=== PATIENT | female | born 1985 | race Caucasian/White ===

== ENCOUNTER 2016-09-17 23:22 | Emergency (ER) | payer BC, OTHER ==
[2016-09-17 23:29] VITALS: TEMP 97.7
[2016-09-17] MEDS ORDERED: HYDROmorphONE/DILAUDID 1 MG/ML SYR IVP ONE (23:33)
[2016-09-17] MEDS ORDERED: ONDANSETRON 4 MG/2 ML VIAL IVP ONE (23:33)
[2016-09-17] MEDS ORDERED: NS 1,000 ML IV ONE (23:33)
--- NOTE | 2016-09-17 23:33 | EDPHY ---
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 HISTORY OF PRESENT ILLNESS: This patient very pleasant 30-year-old female, denies any significant medical history only abdominal surgeries cholecystectomy , she presents emergency room with sudden onset 30 minutes prior to arrival of sharp stabbing right adnexal right lower quadrant pain. No back pain. No fever. No vaginal discharge. No vaginal bleeding. Denies being . States that she around 10 o'clock had sudden onset sharp 10/10 right adnexal right lower quadrant pain. Causing her to bend over. No vomiting. Did have nausea. Denies back pain or urinary symptoms. No history of ovarian torsion or ovarian cyst. Denies being . Still has her appendix. The pain has gradually improved over time. She still has some pelvic pain crampy in nature. Current pain is 6/10. Past Medical History: No significant medical history Past Surgical History: Cholecystectomy Social History: Denies daily use of drugs alcohol tobacco products Family History: Noncontributory ROS REVIEW OF SYSTEMS: A comprehensive 10 point review of systems is otherwise negative aside from elements mentioned in the history of present illness. Exam Constitutional triage nursing summary reviewed, vital signs reviewed, awake/ alert. Eyes normal conjunctivae and sclera, EOMI, PERRLA. HENT normal inspection, atraumatic, moist mucus membranes, no epistaxis, neck supple/ no meningismus, no raccoon eyes. Respiratory clear to auscultation bilaterally, normal breath sounds, no respiratory distress, no wheezing. Cardiovascular rate normal, regular rhythm, no murmur, no edema, distal pulses normal. Gastrointestinal tender palpation right adnexal, right lower quadrant, , no rebound, no guarding, normal bowel sounds, no distension, no pulsatile mass. Genitourinary no CVA tenderness. Musculoskeletal no midline vertebral tenderness, full range of motion, no calf swelling, no tenderness of extremities, no meningismus, good pulses, neurovascularly intact. Skin pink, warm, & dry, no rash, skin atraumatic. Neurologic awake, alert and oriented x 3, AAOx3, moves all 4 extremities equally, motor intact, sensory intact, CN II-XII intact, normal cerebellar, normal vision, normal speech. Psychiatric normal mood/affect. Heme/Lymph/Immune no lymphadenopathy. Differential diagnosis includes but is not limited to and in no particular order : Ruptured ovarian cyst, ovarian torsion, ectopic , appendicitis Bowel obstruction, gallbladder disease, diverticulitis, colitis, enteritis, perforated viscus, gastritis, GERD, esophagitis, urinary tract infection, pyelonephritis, kidney stones Medical Decision Making: Plan for this patient IV establishment, blood draw, IV fluids for hydration, 1 L normal saline, IV Zofran for nausea, IV Dilaudid for pain control. Pelvic ultrasound. Re-evaluation: 0106AM: Ultrasound called to me by Dr. Pena. This is a pelvic ultrasound shows no significant ovarian cyst, no hemorrhagic cyst, no torsion. Good flow to both ovaries. There is pelvic congestion syndrome seen. I did review this patient's blood work at this time no leukocytosis. Electrolytes are appropriate. Kidney function appropriate. Urinalysis clean. No blood. 0113: ; I did re-evaluate this patient this time her abdomen is soft nontender. She tells me her symptoms have greatly improved. She denies abdominal pain at this time. Denies fever. She does not feel nauseous denies chest pain shortness of breath. She would like to go home. I did explain that she has normal vital signs, normal blood work, normal ultrasound I do not have a great explanation for sudden onset sharp stabbing right lower quadrant right adnexal pain. Given that she feels well her ultrasounds reassuring blood work is reassuring I did explain that will allow her to go home however if she develops worsening abdominal pain fever vomiting or does not feel well she needs to immediately return back to the emergency room. We did not rule out acute appendicitis. She understands she develops worsening abdominal pain return emergency room. Source: Patient - Personal History LMP (Females 10-55): Unknown Current Tetanus/Diphtheria Vaccine: Unsure - Medical/Surgical History Hx Asthma: No Hx Chronic Respiratory Disease: No Hx Diabetes: No Hx Cardiac Disease: No Hx Renal Disease: No Hx Cirrhosis: No Hx Alcoholism: No Hx HIV/AIDS: No Hx Splenectomy or Spleen Trauma: No Other PMH: choly, pre-eclampsia - Social History Smoking Status: Never smoked Constitutional: Initial Vital Signs Temperature (C) 36.5 C 09/17/16 23:26 Heart Rate 75 09/17/16 23:26 Respiratory Rate 15 09/17/16 23:26 Blood Pressure 133/83 H 09/17/16 23:26 O2 Sat (%) 99 09/17/16 23:26 O2 Delivery Mode Room Air Allergies/Adverse Reactions: No Known Allergies Allergy (Unverified 09/17/16 23:25) Home Medications: Medication Instructions Recorded NK [No Known Home Meds] 09/17/16 Medical Decision Making - Data Points Laboratory Results: Laboratory Results 09/17/16 23:50 09/17/16 23:50 09/17/16 09/17/16 09/17/16 23:50 23:50 23:50 WBC 6.42 10^3/uL 10^3/uL (3.80-9.50) RBC 4.46 10^6/uL 10^6/uL (4.18-5.33) Hgb 13.7 g/dL g/dL (12.6-16.3) Hct 38.9 % % (38.0-47.0) MCV 87.2 fL fL (81.5-99.8) MCH 30.7 pg pg (27.9-34.1) MCHC 35.2 g/dL g/dL (32.4-36.7) RDW 12.7 % % (11.5-15.2) Plt Count 292 10^3/uL 10^3/uL (150-400) MPV 10.2 fL fL (8.7-11.7) Neut % (Auto) 37.5 % L % (39.3-74.2) Lymph % (Auto) 49.7 % H % (15.0-45.0) [place] % (Auto) 11.4 % % (4.5-13.0) Eos % (Auto) 0.6 % % (0.6-7.6) Baso % (Auto) 0.5 % % (0.3-1.7) Nucleat RBC Rel Count 0.0 % % (0.0-0.2) Absolute Neuts (auto) 2.41 10^3/uL 10^3/uL (1.70-6.50) Absolute Lymphs (auto) 3.19 10^3/uL H 10^3/uL (1.00-3.00) Absolute Monos (auto) 0.73 10^3/uL 10^3/uL (0.30-0.80) Absolute Eos (auto) 0.04 10^3/uL 10^3/uL (0.03-0.40) Absolute Basos (auto) 0.03 10^3/uL 10^3/uL (0.02-0.10) Absolute Nucleated RBC 0.00 10^3/uL 10^3/uL (0-0.01) Immature Gran % 0.3 % % (0.0-1.1) Immature Gran # 0.02 10^3/uL 10^3/uL (0.00-0.10) Sodium 141 mEq/L mEq/L (134-144) Potassium 4.5 mEq/L mEq/L (3.5-5.2) Chloride 103 mEq/L mEq/L (97-110) Carbon Dioxide 24 mEq/l mEq/l (22-31) Anion Gap 14 mEq/L mEq/L (8-16) BUN 19 mg/dL mg/dL (7-23) Creatinine 0.8 mg/dL mg/dL (0.6-1.0) Estimated GFR > 60 Glucose 90 mg/dL mg/dL (70-100) Calcium 10.1 mg/dL mg/dL (8.5-10.4) Total Bilirubin 0.7 mg/dL mg/dL (0.1-1.4) Conjugated Bilirubin 0.4 mg/dL mg/dL (0.0-0.5) Unconjugated Bilirubin 0.3 mg/dL mg/dL (0.0-1.1) AST 28 IU/L IU/L (14-46) ALT 35 IU/L IU/L (9-52) Alkaline Phosphatase 136 IU/L H IU/L (38-126) Total Protein 7.9 g/dL g/dL (6.3-8.2) Albumin 4.6 g/dL g/dL (3.5-5.0) Lipase 178.0 IU/L IU/L (23-300) Beta HCG, Qual NEGATIVE Urine Color Urine Appearance Urine pH Ur Specific [place] Urine Protein Urine Ketones Urine Blood Urine Nitrate Urine Bilirubin Urine Urobilinogen Ur Leukocyte Esterase Urine Glucose 09/17/16 23:35 WBC RBC Hgb Hct MCV MCH MCHC RDW Plt Count MPV Neut % (Auto) Lymph % (Auto) [place] % (Auto) Eos % (Auto) Baso % (Auto) Nucleat RBC Rel Count Absolute Neuts (auto) Absolute Lymphs (auto) Absolute Monos (auto) Absolute Eos (auto) Absolute Basos (auto) Absolute Nucleated RBC Immature Gran % Immature Gran # Sodium Potassium Chloride Carbon Dioxide Anion Gap BUN Creatinine Estimated GFR Glucose Calcium Total Bilirubin Conjugated Bilirubin Unconjugated Bilirubin AST ALT Alkaline Phosphatase Total Protein Albumin Lipase Beta HCG, Qual Urine Color YELLOW Urine Appearance CLEAR Urine pH 7.0 (5.0-7.5) Ur Specific [place] 1.016 (1.002-1.030) Urine Protein NEGATIVE (NEGATIVE) Urine Ketones NEGATIVE (NEGATIVE) Urine Blood NEGATIVE (NEGATIVE) Urine Nitrate NEGATIVE (NEGATIVE) Urine Bilirubin NEGATIVE (NEGATIVE) Urine Urobilinogen NEGATIVE EU EU (0.2-1.0) Ur Leukocyte Esterase NEGATIVE (NEGATIVE) Urine Glucose NEGATIVE (NEGATIVE) Medications Given: Discontinued Medications Hydromorphone HCl (Dilaudid) 0.5 mg IVP EDNOW ONE Stop: 09/17/16 23:34 Last Admin: 09/17/16 23:52 Dose: Not Given Sodium Chloride (Ns) 1,000 mls @ 0 mls/hr IV ONCE ONE; Wide Open PRN Reason: Protocol Stop: 09/17/16 23:34 Last Admin: 09/17/16 23:51 Dose: 1,000 mls Ondansetron HCl (Zofran) 4 mg IVP EDNOW ONE Stop: 09/17/16 23:34 Last Admin: 09/17/16 23:52 Dose: Not Given Departure - Departure Disposition: Home, Routine, Self-Care Clinical Impression: Abdominal pain Qualifiers: Abdominal location: lower abdomen, unspecified Qualified Code(s): R10.30 - Lower abdominal pain, unspecified Condition: Good Instructions: Acute Abdominal Pain (ED) Additional Instructions: 1. Return emergency room immediately if he develops worsening abdominal pain, fever, vomiting. 2. Your ultrasound and blood work were reassuring tonight. However she develops worsening abdominal pain return for possible CT scan. Referrals: Luz Marina Anton MD [Primary Care Provider] - As per Instructions
[2016-09-17 23:52] LABS: COLOR YELLOW; LEUKOCYTE ESTERASE,URINE NEGATIVE (NEGATIVE); NITRITE,URINE NEGATIVE (NEGATIVE)
[2016-09-18 00:03] LABS: % IMMATURE GRANULYOCYTES 0.3 % (0.0-1.1); ABSOLUTE IMMATURE GRANULOCYTES 0.02 10^3/uL (0.00-0.10); ADD DIFF? NO; ADD MORPH? NO; ADD SCAN? NO; ATYPICAL LYMPHOCYTE FLAG 70 (0-99); FRAGMENT RBC FLAG 0 (0-99); HEMATOCRIT 38.9 % (38.0-47.0); HEMOGLOBIN 13.7 g/dL (12.6-16.3); LEFT SHIFT FLG 0 (0-99); LIPEMIA HEMOLYSIS FLAG 90 (0-99); MEAN CELL HEMOGLOBIN 30.7 pg (27.9-34.1); MEAN CELL HEMOGLOBIN CONCENTR. 35.2 g/dL (32.4-36.7); MEAN CELL VOLUME 87.2 fL (81.5-99.8); MEAN PLATELET VOLUME 10.2 fL (8.7-11.7); PLATELET CLUMPS FLAG 0 (0-99); PLATELET COUNT 292 10^3/uL (150-400); RED BLOOD CELL COUNT 4.46 10^6/uL (4.18-5.33); RED CELL DISTRIBUTION WIDTH 12.7 % (11.5-15.2)
[2016-09-18 00:56] LABS: ALANINE AMINOTRANSFERASE 35 IU/L (9-52); ALBUMIN 4.6 g/dL (3.5-5.0); ALKALINE PHOSPHATASE 136 IU/L (38-126); ANION GAP 14 mEq/L (8-16); ASPARTATE AMINOTRANSFERASE 28 IU/L (14-46); BILIRUBIN,TOTAL 0.7 mg/dL (0.1-1.4); BILIRUBIN-CONJUGATED 0.4 mg/dL (0.0-0.5); BILIRUBIN-UNCONJUGATED 0.3 mg/dL (0.0-1.1); CALCIUM 10.1 mg/dL (8.5-10.4); CARBON DIOXIDE 24 mEq/l (22-31); CHLORIDE 103 mEq/L (97-110); CREATININE 0.8 mg/dL (0.6-1.0); GLOMERULAR FILTRATION RATE > 60; GLUCOSE 90 mg/dL (70-100); POTASSIUM 4.5 mEq/L (3.5-5.2); SODIUM 141 mEq/L (134-144); TOTAL PROTEIN 7.9 g/dL (6.3-8.2)
[2016-09-18 01:23] VITALS: BP 112/63; PULSE 72; RESP 16; O2SAT 96
== END 2016-09-18 01:23 | disposition home or self-care (01) ==
DX: R10.31 Right lower quadrant pain (principal); Z90.49 Acquired absence of other specified parts of digestive tract

== ENCOUNTER 2017-02-24 10:08 | Emergency (ER) | payer OTHER ==
[2017-02-24] MEDS ORDERED: IBUPROFEN 600 MG TAB PO ONE (10:28)
[2017-02-24] MEDS ORDERED: METOCLOPRAMIDE 10 MG/2 ML VIAL IVP ONE (10:49)
[2017-02-24] MEDS ORDERED: NS 1,000 ML IV ONE (10:49)
[2017-02-24] MEDS ORDERED: IOPAMIDOL (ISOVUE 370) 100 ML BTL IV ONE (11:03)
--- NOTE | 2017-02-24 11:13 | EDPHY ---
H & P Time Seen by Provider: 02/24/17 10:35 HPI/ROS: CHIEF COMPLAINT: Headache and neck pain HISTORY OF PRESENT ILLNESS: Patient had a fall yesterday at 3:00 p.m. [place] on her tailbone does not remember specifically hitting her head. About 2 hours later she developed a bifrontal headache which has persisted and is associated with posterior neck pain. It is much worse when she stands up and when she does have an upright position she gets nausea and has vomiting and feels dizzy and off balance. When she is lying down she feels much better. No spinal tap or epidural or other spinal procedures recently. No fever or chills or ENT symptoms. No trouble with speech or vision thought strength or sensation. REVIEW OF SYSTEMS: Eye: no change in vision or double vision ENT: no sore throat Cardiac: no chest pain or syncope Pulmonary: no cough or SOB Abdomen: No abdominal pain Musculoskeletal: Neck stiffness and tailbone soreness Skin: no rash Neuro: HPI Constitutional: no fever : no urinary symptoms A comprehensive 10 point review of systems is otherwise negative aside from elements mentioned in the history of present illness. PAST MEDICAL HISTORY: Cholecystectomy, preeclampsia Social history: has 11 month child at home, no alcohol General Appearance: Alert and conversant, cooperative. Eyes: No scleral icterus. Pupils equal round reactive and extraocular motion intact ENT, Mouth: Normal mucous membranes. No hemotympanum. Respiratory: Normal respiratory effort, breath sounds equal, lungs are clear to auscultation. Cardiovascular: Regular rate and rhythm. No carotid bruit. Gastrointestinal: Abdomen is soft and non tender. Neurological: Alert and oriented x3. Normally conversant. Face symmetric, normal movement and sensation in all extremities. Normal [id number] bilaterally and no pronator drift. Skin: Warm and dry, no rashes. Musculoskeletal: Some tenderness on coccyx, no cervical thoracic or lumbar spine tenderness. Psychiatric: Not agitated. Emergency Department course/MDM: Possibility of great vessel dissection is considered, angiography discussed and consented. 1140: Negative CT imaging including noncontrast head and angiography of the neck per Georgina at this time. Treated for headache with IV metoclopramide and Benadryl. IV normal saline. At this time results were discussed with the patient. She is sitting up and is no longer vomiting. Plan for symptomatic treatment and discharge. Warned it is possible that she has concussion, it is also possible that she developed primary headache only coincidentally related to being an onset 2 hours after fall. Smoking Status: Never smoked Constitutional: Initial Vital Signs Temperature (C) 37.4 C 02/24/17 10:17 Heart Rate 74 02/24/17 10:17 Respiratory Rate 16 02/24/17 10:17 Blood Pressure 123/55 H 02/24/17 10:17 O2 Sat (%) 98 02/24/17 10:17 O2 Delivery Mode Room Air Allergies/Adverse Reactions: sulfacetamide [From Sulfacet-R] Allergy (Verified 02/24/17 10:16) sulfur [From Sulfacet-R] Allergy (Verified 02/24/17 10:16) Home Medications: Medication Instructions Recorded NK [No Known Home Meds] 09/17/16 Medical Decision Making - Data Points Laboratory Results: 02/24/17 10:51 POC Hgb 15.6 gm/dL gm/dL (12.6-16.3) POC Hct 46 % % (38-47) POC Sodium 140 mEq/L mEq/L (134-144) POC Potassium 4.2 mEq/L mEq/L (3.3-5.0) POC Chloride 105 mEq/L mEq/L (97-110) POC BUN 15 mg/dL mg/dL (7-23) POC Creatinine 0.8 mg/dL mg/dL (0.6-1.0) POC Glucose 136 mg/dL H mg/dL (70-100) Medications Given: Discontinued Medications Diphenhydramine HCl (Benadryl Injection) 25 mg IVP EDNOW ONE Stop: 02/24/17 10:50 Last Admin: 02/24/17 11:03 Dose: 25 mg Sodium Chloride (Ns) 1,000 mls @ 0 mls/hr IV ONCE ONE; Wide Open PRN Reason: Protocol Stop: 02/24/17 10:50 Last Admin: 02/24/17 11:03 Dose: 1,000 mls Ibuprofen (Motrin) 600 mg PO EDNOW ONE Stop: 02/24/17 10:29 Last Admin: 02/24/17 10:30 Dose: 600 mg Metoclopramide HCl (Reglan Injection) 10 mg IVP EDNOW ONE Stop: 02/24/17 10:50 Last Admin: 02/24/17 11:03 Dose: 10 mg Point of Care Test Results: 02/24/17 10:51 POC Sodium 140 POC Potassium 4.2 POC Chloride 105 POC BUN 15 POC Creatinine 0.8 POC Glucose 136 H Departure - Departure Disposition: Home, Routine, Self-Care Clinical Impression: Headache Qualifiers: Headache type: unspecified Headache chronicity pattern: acute headache Intractability: not intractable Qualified Code(s): R51 - Headache Condition: Good Instructions: Acute Headache (ED) Additional Instructions: It is possible that you had a concussion. Your brain and neck imaging was normal today. You received IV metoclopramide and Benadry in the emergency department today. However, it is also possible that you developed a headache that was only coincidentally related to the fall. Referrals: Luz Marina Anton MD [[facility] Primary Care Provider] - As per Instructions
[2017-02-24 12:24] VITALS: BP 112/63; PULSE 69; RESP 18; TEMP 98.4; O2SAT 96
== END 2017-02-24 12:21 | disposition home or self-care (01) ==
PROC: 3E0337Z Introduction of Electrolytic and Water Balance Substance into Peripheral Vein, Percutaneous Approach (ICD-10-PCS; principal; 2017-02-24)
DX: S09.90XA Unspecified injury of head, initial encounter (principal); E86.9 Volume depletion, unspecified; V00.311A Fall from snowboard, initial encounter; Y92.89 Other specified places as the place of occurrence of the external cause; Y93.23 Activity, snow (alpine) (downhill) skiing, snowboarding, sledding, tobogganing and snow tubing
CPT/HCPCS: 82947-QW; 96374; J1200; J2765; Q9967

== ENCOUNTER 2017-02-25 08:47 | Observation (INO) | payer OTHER ==
[2017-02-25] MEDS ORDERED: DEXAMETHASONE 10 MG/ML VIAL IVP ONE (09:02)
[2017-02-25] MEDS ORDERED: METOCLOPRAMIDE 10 MG/2 ML VIAL IVP ONE (09:02)
[2017-02-25] MEDS ORDERED: NS 1,000 ML IV ONE (09:02)
[2017-02-25] MEDS ORDERED: ONDANSETRON 4 MG/2 ML VIAL IVP ONE (09:02)
[2017-02-25] MEDS ORDERED: KETOROLAC 30 MG/1 ML SDV IVP ONE (09:02)
--- NOTE | 2017-02-25 09:09 | EDPHY ---
H & P Time Seen by Provider: 02/25/17 08:56 HPI/ROS: HPI Headache. 31-year-old female by private vehicle with her . This patient reports that she was seen in our emergency department yesterday. She fell on her snowboard yesterday and sustained a possible head injury but stay she thinks she fell more on her tailbone and is not sure she hit her head. She complained of a headache during that emergency department visit which was treated with IV Benadryl and Reglan. She states that the headache came on the morning after her fall in the day she was seen in the emergency department. She had imaging which included noncontrast CT scan of the head as well as CT angiograms of the head and the neck. These studies were negative. She was discharged to home with diagnosis of possible concussion or coincidental atraumatic migraine type headache. She reports that her headache is positional and worse when she is standing up, better when she is laying flat. She has had no recent history of lumbar puncture or other invasive spinal procedures. She reports that she woke up again this this morning, stood up and her headache returned. She describes it as frontal and aching associated with nausea followed by vomiting. It is worse when she is standing and better when she is laying down. She describes having multiple episodes of nonbilious, nonbloody vomiting. ROS: Constitutional: No fever, no chills. No weakness. Eyes: No discharge. No changes in vision. ENT: No sore throat. No nasal congestion or rhinorrhea. Respiratory: No cough. No shortness of breath. Cardiac: No chest pain, no palpitations. Gastrointestinal: No abdominal pain, as above, no diarrhea. Genitourinary: No hematuria. No dysuria or increased frequency with urination. Musculoskeletal: No back pain. No neck pain. No myalgias or arthralgias. Skin: No rashes. Neurological: As above. No focal weakness or altered sensation. Past medical history: Cholecystectomy and preeclampsia. She is allergic to sulfa medications. As above. Social history: [id number] child at home. No alcohol. Nonsmoker. Here with her . Physical Exam: General Appearance: Alert, she appears uncomfortable. This patient is responding to questions appropriately and in full sentences. This patient appears well-hydrated and well-nourished. Eyes: Pupils equal and round no pallor or injection. No lid edema, erythema or injection. No photophobia. No nystagmus. ENT, Mouth: Mucous membranes are moist. The pharyngeal tissues are unremarkable. No edema or swelling. No asymmetry suggestive of abscess. No erythema or exudates. Respiratory: There are no retractions, lungs are clear to auscultation with good air movement bilaterally. Cardiovascular: Regular rate and rhythm. No murmur. Gastrointestinal: Abdomen is soft and nontender, no masses, bowel sounds normal. No focal tenderness at McBurney's point. No Zapien sign. Neurological: Motor sensory function is grossly intact. Cranial nerves are normal. Gait is normal. Skin: Warm and dry, no rashes. Musculoskeletal: Neck is supple, however she does have pain with flexion of her neck and her headache worsens with flexion of her neck. Extremities are symmetrical. All joints range without pain or impingement. Psychiatric: No agitation. No depression. Database: EKG: Imaging: Procedure: Lumbar puncture. Indication: Persistent headache After verbal informed consent from patient explaining the risks including infection, bleeding, and neurologic damage, a lumbar puncture was performed after the patient was prepped and draped in the usual fashion. The back was anesthetized with 1% lidocaine. Approximately 4 cc of clear fluid was obtained. It was a slow drip. Certainly not consistent with intracranial hypertension. Opening pressure was not obtained. There were no complications. The procedure was performed by myself. Procedures: Emergency department course: Medical records and imaging reviewed from yesterday. Vital signs reviewed. IV was established. She was started on IV normal saline with 1 L to be given over the next hour for hydration. Initial medications for headache treatment include 25 mg of IV Benadryl, 10 mg of IV Reglan, 10 mg of IV Decadron, 30 mg of IV Toradol and 4 mg of IV Zofran. 10:45 a.m., patient feeling better at this time. However we got her up and walked her, when she stood up her headache returned but not as severe. She was given 0.5 mg of IV hydromorphone. 11:15 a.m., patient still complains of a positional headache with associated nausea when she sits up. Repeat neurologic evaluation is nonfocal. She again describes this as a frontal headache. I discussed lumbar puncture to evaluate for possible infectious etiology verses bleeding. She consents to this procedure as does her . She was given 50 mcg of fentanyl during the procedure. 1:15 p.m., results of CSF significant for white cells. No significant RBCs. Polymorphic mononuclear white cells seen on Gram stain. No organisms. Patient started on IV ceftriaxone, acyclovir and vancomycin. Results of CSF discussed with her as well as plan for admission. All of her questions were answered. 1:30 p.m., spoke with on-call hospitalist. Patient accepted for admission by Dr. Gnozález Roy. I discussed with Dr. Roy the possibility of a venous thrombosis as a cause of her headache. He will evaluate the patient and obtain an MR venogram to evaluate for this. The patient's remaining emergency department course in my care has been uneventful. She was admitted in stable condition. Infectious disease consultation defer to hospital service. Differential Diagnosis: The differential diagnosis on this patient includes but is not limited to concussion syndrome, migraine type headache, meningitis, encephalitis, venous thrombosis. Subarachnoid hemorrhage, epidural hematoma, subdural hematoma, unlikely. This represents a partial list of diagnoses considered. These considerations are based on history, physical exam, past history, reassessment and diagnostic testing. Smoking Status: Never smoked Constitutional: Initial Vital Signs Temperature (C) 36.6 C 02/25/17 08:51 Heart Rate 69 02/25/17 08:51 Respiratory Rate 18 02/25/17 08:51 Blood Pressure 124/78 H 02/25/17 08:51 O2 Sat (%) 99 02/25/17 08:51 O2 Delivery Mode Room Air Allergies/Adverse Reactions: Sulfa (Sulfonamide Antibiotics) Allergy (Verified 02/25/17 13:49) Hives Home Medications: Medication Instructions Recorded Acetaminophen [Tylenol 325mg (*)] 325 mg PO DAILY PRN 02/25/17 Medical Decision Making - Data Points Laboratory Results: Laboratory Results 02/25/17 09:10 Microbiology Results: MICROBIOLOGY 02/25/17 12:00 Cerebral Spinal Fluid Gram Stain - Final 02/25/17 12:00 Cerebral Spinal Fluid CSF Culture - Preliminary Medications Given: Acetaminophen (Tylenol) 325 mg PO DAILY PRN PRN Reason: Pain, Mild Stop: 08/24/17 14:45 Last Admin: 02/26/17 08:34 Dose: 325 mg Discontinued Medications Acyclovir (Acyclovir) 600 mg PO EDNOW ONE Stop: 02/25/17 13:26 Last Admin: 02/25/17 14:12 Dose: Not Given Dexamethasone (Decadron Injection) 10 mg IVP EDNOW ONE Stop: 02/25/17 09:03 Last Admin: 02/25/17 09:20 Dose: 10 mg Diphenhydramine HCl (Benadryl Injection) 25 mg IVP EDNOW ONE Stop: 02/25/17 09:03 Last Admin: 02/25/17 09:20 Dose: 25 mg Fentanyl (Sublimaze) 100 mcg IVP EDNOW ONE Stop: 02/25/17 11:58 Last Admin: 02/25/17 12:12 Dose: 50 mcg Hydromorphone HCl (Dilaudid) 0.5 mg IVP EDNOW ONE Stop: 02/25/17 10:57 Last Admin: 02/25/17 11:57 Dose: Not Given Sodium Chloride (Ns) 1,000 mls @ 0 mls/hr IV ONCE ONE; Wide Open PRN Reason: Protocol Stop: 02/25/17 09:03 Last Admin: 02/25/17 09:18 Dose: 1,000 mls Ceftriaxone Sodium 2 gm/ (Dextrose) 50 mls @ 100 mls/hr IV EDNOW ONE PRN Reason: Protocol Stop: 02/25/17 13:51 Last Admin: 02/25/17 15:47 Dose: 50 mls Vancomycin/Sodium Chloride (Vancomycin 1 Gm (Premix)) 250 mls @ 250 mls/hr IV EDNOW ONE PRN Reason: Protocol Stop: 02/25/17 14:21 Last Admin: 02/25/17 14:00 Dose: 250 mls Acyclovir 600 mg/ Dextrose 112 mls @ 112 mls/hr IV EDNOW ONE Stop: 02/25/17 14:44 Last Admin: 02/25/17 16:54 Dose: 112 mls Ketorolac Tromethamine (Toradol) 30 mg IVP EDNOW ONE Stop: 02/25/17 09:03 Last Admin: 02/25/17 09:20 Dose: 30 mg Metoclopramide HCl (Reglan Injection) 10 mg IVP EDNOW ONE Stop: 02/25/17 09:03 Last Admin: 02/25/17 09:20 Dose: 10 mg Ondansetron HCl (Zofran) 4 mg IVP EDNOW ONE Stop: 02/25/17 09:03 Last Admin: 02/25/17 09:20 Dose: 4 mg Departure - Departure Disposition: [facility] Acute Clinical Impression: Headache, Meningitis
[2017-02-25] MEDS ORDERED: HYDROmorphONE/DILAUDID 1 MG/ML INJ IVP ONE (10:56)
[2017-02-25] MEDS ORDERED: fentaNYL 100 MCG/2 ML INJ ONE (11:55)
[2017-02-25] MEDS ORDERED: fentaNYL 100 MCG/2 ML INJ IVP ONE (11:57)
[2017-02-25 12:50] LABS: PROTEIN, CSF 66 mg/dL (12-60)
[2017-02-25 12:56] LABS: CSF APPEARANCE CLEAR (CLEAR); CSF COLOR COLORLESS (COLORLESS); CSF SUPERNATANT COLORLESS (COLORLESS); WBC, CSF 12 /mm3 (0-5)
[2017-02-25 12:57] LABS: CSF APPEARANCE CLEAR (CLEAR); CSF COLOR COLORLESS (COLORLESS); CSF SUPERNATANT COLORLESS (COLORLESS); WBC, CSF 10 /mm3 (0-5)
[2017-02-25] MEDS ORDERED: VANCOMYCIN HCL/NORMAL SALINE 250 ML IV ONE (13:22)
[2017-02-25] MEDS ORDERED: cefTRIAXone 2 GM in D5W 50 ML IV ONE (13:22)
[2017-02-25] MEDS ORDERED: ACYCLOVIR 400 MG TAB PO ONE (13:25)
[2017-02-25] MEDS ORDERED: ACYCLOVIR 600 MG in D5W 100 ML IV ONE (13:45)
[2017-02-25] MEDS ORDERED: oxyCODONE IR 5 MG TAB PO PRN (14:49)
[2017-02-25] MEDS ORDERED: ONDANSETRON 4 MG/2 ML VIAL IVP PRN (14:49)
[2017-02-25] MEDS ORDERED: PROMETHAZINE HCL 25 MG/ML INJ IVP PRN (14:49)
[2017-02-25 14:53] LABS: % IMMATURE GRANULYOCYTES 0.4 % (0.0-1.1); ABSOLUTE IMMATURE GRANULOCYTES 0.05 10^3/uL (0.00-0.10); ADD DIFF? NO; ADD MORPH? NO; ADD SCAN? NO; ATYPICAL LYMPHOCYTE FLAG 0 (0-99); FRAGMENT RBC FLAG 0 (0-99); HEMATOCRIT 42.8 % (38.0-47.0); LEFT SHIFT FLG 0 (0-99); LIPEMIA HEMOLYSIS FLAG 90 (0-99); MEAN CELL HEMOGLOBIN 31.2 pg (27.9-34.1); MEAN PLATELET VOLUME 10.8 fL (8.7-11.7); PLATELET CLUMPS FLAG 0 (0-99); PLATELET COUNT 295 10^3/uL (150-400); RED BLOOD CELL COUNT 4.81 10^6/uL (4.18-5.33); RED CELL DISTRIBUTION WIDTH 12.6 % (11.5-15.2)
--- NOTE | 2017-02-25 15:25 | GHP ---
[f rep st] HISTORY AND PHYSICAL DATE OF ADMISSION: 02/25/2017 CHIEF COMPLAINT: Headache. HISTORY OF PRESENT ILLNESS: This is a 31-year-old female, 11 months , with history of preg lv-induced hypertension, who presented to the emergency department initially yesterday with a head ache. She was snowboarding at [place] on Saturday when she sustained a fall and landed on her tailbon e, but did not hit her head. On Saturday night around 6:00 p.m., she developed a severe headache. T he headache went away with lying down. She awoke on Saturday with worsening headache as well as troubl e seeing. The pain was worse with any kind of movement. She was evaluated in the emergency department, where she was thought to maybe have a postconcussive h eadache or migraine, and was sent home. Today, she awoke with worsening headache associated with nausea and profuse vomiting. She had some c hills as well as some mild neck pain. PAST MEDICAL HISTORY: -induced hypertension. PAST SURGICAL HISTORY: Cholecystectomy. MEDICATIONS: None. ALLERGIES: Sulfa. SOCIAL HISTORY: She drinks alcohol occasionally. She denies any tobacco or illicit drugs. FAMILY HISTORY: Significant for type 2 diabetes mellitus. REVIEW OF SYSTEMS: Comprehensive 10-point review of systems was done and is negative, except for as mentioned in the HPI. PHYSICAL EXAM: VITAL SIGNS: Blood pressure 122/76, pulse of 81, respiratory rate 18, O2 saturation 95% on room air. Temperature afebrile. GENERAL: No acute distress. Nontoxic appearing. HEAD: No rmocephalic, atraumatic. EYES: PERRLA. Sclerae anicteric. MOUTH: Moist mucous membranes. NECK: Supple. No lymphadenopathy. CARDIOVASCULAR: S1, S2. No JVD. No lower extremity edema. PULMONAR Y: Lungs are clear. No wheezes, rales, or rhonchi. ABDOMEN: Soft, nontender, nondistended. No gu arding or rebound tenderness. Normoactive bowel sounds. EXTREMITIES: No clubbing or cyanosis. RLYEE RO: Cranial nerves 2-12 grossly intact. There is no meningismus, but she says she has some mild jolynn n with flexion of her head and neck. SKIN: Clear. No rash. No petechiae. DIAGNOSTICS: Hemoglobin done yesterday was 15.6 with hematocrit of 46. Lumbar puncture done in the emergency department: White blood cell count of 12, glucose of 78, total protein 66. CTA of the head and neck done yesterday showed no acute vascular findings. ASSESSMENT: This is a 31-year-old female presenting with severe positional headache associated with nausea and vomiting in the setting of CSF with mild pleocytosis, elevated glucose, and elevated prote in. Differential diagnosis includes aseptic meningitis versus other central etiologies, such as venous si nus thrombosis. PLAN: The patient will be placed on observation where Infectious Disease will evaluate the patient. The odd thing about this case in particular is that her headache is truly positional, which seems od d for aseptic meningitis. Will proceed with MRV of the head to evaluate for venous sinus thrombosis. Will monitor off antibiotics, given the fact that she is not toxic appearing. She did receive a do se of antibiotics while in the emergency department. The patient is at low risk for VTE and recommend early ambulation. /[id number]/MODL
[2017-02-25 15:26] LABS: INR 1.02 (0.83-1.16); PROTIME(PATIENT) 13.3 SEC (12.0-15.0)
[2017-02-25 15:28] LABS: APTT 25.6 SEC (23.0-38.0)
[2017-02-25 15:29] LABS: ALANINE AMINOTRANSFERASE 32 IU/L (9-52); ALBUMIN 4.1 g/dL (3.5-5.0); ALKALINE PHOSPHATASE 89 IU/L (38-126); ANION GAP 11 mEq/L (8-16); ASPARTATE AMINOTRANSFERASE 22 IU/L (14-46); BILIRUBIN,TOTAL 0.7 mg/dL (0.1-1.4); CALCIUM 9.4 mg/dL (8.5-10.4); CARBON DIOXIDE 22 mEq/l (22-31); CHLORIDE 106 mEq/L (97-110); CREATININE 0.7 mg/dL (0.6-1.0); GLOMERULAR FILTRATION RATE > 60; GLUCOSE 141 mg/dL (70-100); SODIUM 139 mEq/L (134-144); TOTAL PROTEIN 7.1 g/dL (6.3-8.2)
[2017-02-25] MEDS: ACETAMINOPHEN 325 MG TAB PO PRN (19:45)
--- NOTE | 2017-02-25 22:17 | GCON ---
[f rep st] CONSULTATION INFECTION DISEASES CONSULTATION REASON FOR CONSULTATION: Aseptic meningitis. HISTORY OF PRESENT ILLNESS: Patient is a 31-year-old female without significant past medical history , whom I am asked to see in consultation for aseptic meningitis. Patient was snowboarding at [place] on Saturday when she sustained a fall, landing on her sacral region. She does not recall hitting her head at that point in time. Subsequently that evening, she developed severe headache, which was fro ntal in location. This improved when she was lying down, and she was able to sleep that evening. On Saturday, she had worsening headache, that was significantly worsened by standing or sitting. Given t hose complaints, she was seen in the emergency department yesterday, at which point in time she under went evaluation with CT angio of the head and neck, which showed no acute vascular findings. Sinuses appeared normal. Patient was treated supportively for headache and possible concussion. This morni ng, she awoke with severe headache, which was associated with intractable nausea and vomiting. She d id not have any fever, but did describe feeling slightly malaised. No significant visual changes. N o skin rash. No neck stiffness. Patient does not have any ongoing back pain. Patient does have an [id number] at home, who goes to daycare and did have recent mild URI symptoms. No other ill contac ts. No recent travel or unusual animal exposure. No intake of deli meat or hot dogs. Based on her persisting symptoms, she underwent lumbar puncture earlier today with CSF showing 10 white blood cell s with 41% lymphocytes and 52% macrophages. Gram stain is negative for organisms. Blood cultures x2 were also obtained. She subsequently underwent MR venogram, which does not show evidence of sinus v enous thrombosis. Patient feels significantly improved when she is lying flat. She does have mild a ssociated photophobia. She was given a dose of acyclovir, vancomycin, and ceftriaxone in the emergen cy department. Given the above findings, I am now asked to assist in her ongoing management. PAST MEDICAL HISTORY: Preeclampsia during . Patient does have a history of shingles along the lower back; no history of HSV. PAST SURGICAL HISTORY: Cholecystectomy. CURRENT MEDICATIONS: OxyIR as needed, Zofran as needed, Phenergan as needed. ALLERGIES: Sulfonamides associated with rash as a child. SOCIAL HISTORY: Patient does not smoke and drinks alcohol socially. No drug use history. Patient w orks as a CPA. FAMILY HISTORY: Diabetes mellitus. REVIEW OF SYSTEMS: Outside that noted in the HPI, the remainder of 10-system review is unremarkable. PHYSICAL EXAMINATION: VITAL SIGNS: Temperature 36.8, heart rate 93, respiratory rate 18, blood pres sure 115/67, oxygen saturation 98% on room air. GENERAL: Patient is well nourished, well developed, in no acute distress, and appears nontoxic. She is lying to eat. HEENT: There is no scleral icter us, conjunctival injection, or conjunctival petechiae. Oropharynx is clear without lesions. Mucous membranes are moist. Dentition is in good repair. There is no nasal discharge. Extraocular muscles are intact. Pupils are equal, round, and reactive to light. NECK: Supple without palpable lymphad enopathy or thyromegaly. CHEST: Clear to auscultation bilaterally without adventitious sounds. Res piratory effort is normal. CARDIOVASCULAR: Regular rate and rhythm without murmurs, gallops, or rub s. ABDOMEN: Soft, nontender, nondistended. There is no palpable organomegaly. Bowel sounds are pr esent. MUSCULOSKELETAL: There is no cyanosis, clubbing, or edema. SKIN: No rash present. No stig hull of endocarditis. SKIN: Warm and dry to touch. NEUROLOGIC: Patient is alert and interacts felicia ropriately with examiner. Cranial nerves 2-12 are grossly intact. Sensation is grossly intact. Mot or strength is 5/5 bilaterally and symmetric. LYMPHATICS: No cervical or supraclavicular nodes palp able. LABORATORY DATA: White blood cell count 11.6, hematocrit 42.8, platelets 295, neutrophils 81%. Seru m creatinine 0.7. AST 22, ALT 32, bilirubin 0.7, alkaline phosphatase 89, albumin 4.1. CSF shows 10 white blood cells, 0 red blood cells in tube 4 with 7% neutrophils, 41% lymphocytes, and 52% macroph ages. Blood cultures x2 are pending. IMAGING DATA: As outlined above. IMPRESSION: Headache: CSF shows mild pleocytosis, which could be compatible with viral meningitis. Recent local cases of enterovirus have been observed in our community as a possibility. HSV or VZV would also be considerations. Doubt West Nile virus given lack of mosquito activity currently. No c linical findings or CSF findings to suggest bacterial meningitis. Patient's headache is positional, as would be seen with a post LP headache, although symptoms predated her LP. Query if a dural tear m ay have occurred in her snowboarding accident, which could cause similar symptomatology. RECOMMENDATIONS: 1. Observe off antibiotics. 2. Continue supportive care. 3. Check CSF for HSV/VZV by PCR, enterovirus by PCR, and follow up CSF culture as available. 4. If headache persists and remains positional, may need neurosurgical consultation to assess for du ral tear. Thank you for this consultation. We will continue to follow the patient with you. /[id number]/MODL
[2017-02-26] MEDS: ACETAMINOPHEN 325 MG TAB PO PRN ×3 (08:32→19:20)
--- NOTE | 2017-02-26 10:42 | PCMIDPN ---
Assessment/Plan: Assessment/Plan: 1. Positional headache with mild CSf pleocytosis: - asceptic meningitis vs dural tear after fall during skiiing - HSV and enterovirus PCR pending - Observing off any directive therapy. - For blood patch per hospitalist team -discussed with patient and at bedside. - care coordinated with hospitalist team. Subjective: afebrile. feels better except for headaches which are ongoing when she is upright. this predated her LP. no further neck stiffness. no further vomiting. no diarrhea. no visual changes. no photophobia.' Objective: Vital Signs Temp Pulse Resp BP Pulse Ox 36.8 C 82 16 116/70 98 02/26/17 07:26 02/26/17 07:26 02/26/17 07:26 02/26/17 07:26 02/26/17 07:26 Laboratory Results 02/25/17 14:48 - Physical Exam General Appearance: alert, no apparent distress Respiratory: lungs clear Cardiac/Chest: regular rate, rhythm Extremities: No swelling Abdomen: normal bowel sounds, non-tender, soft, No distended Skin: No rash ICD10 Worksheet Patient Problems: Problems Problem Status Onset Headache Acute Meningitis Acute
--- NOTE | 2017-02-26 13:24 | HOSPPROG ---
Hospitalist Progress Note Assessment/Plan: Set 31-year-old female presenting with positional headache that began after falling onto her tailbone while snowboarding with CSF showing mild pleocytosis and borderline high protein and glucose levels 1. Positional headache most likely due to dural tear given the history however aseptic meningitis remains in the differential Plan: I discussed case with Dr. Nevaeh Hammond who is on-call for Neurosurgery does think the possibility of a dural tear sounds reasonable given the fact that her headache is strictly positional. She recommended trying a blood patch. I had a long discussion with the patient and her regarding treatment options which included strict bedrest versus blood patch. Initially they were going to try to go home, however she continues to have a severe headache. I discussed case with Dr. Caputo from Interventional Radiology will attempt a blood patch later today Subjective: Continues to have a headache with changing in position and with standing. There is no headache when lying still. She denies any fevers or chills. Objective: Vital Signs Temp Pulse Resp BP Pulse Ox 36.7 C 71 16 118/73 99 02/26/17 11:27 02/26/17 11:27 02/26/17 11:27 02/26/17 11:27 02/26/17 11:27 Laboratory Results 02/25/17 14:48 PT 13.3 SEC (12.0-15.0) 02/25/17 09:10 INR 1.02 (0.83-1.16) 02/25/17 09:10 MRA of the head was reviewed and was negative for venous sinus thrombosis - Physical Exam Constitutional: no apparent distress, appears nourished, not in pain, other ( Nontoxic appearing) Cardiovascular: regular rate and rhythym, no murmur, rub, or gallop Respiratory: no respiratory distress, no rales or rhonchi, clear to auscultation Gastrointestinal: normoactive bowel sounds, soft, non-tender abdomen, no palpable masses Neurologic: AAOx3, CN II-XII Intact, No facial droop ICD10 Worksheet Patient Problems: Problems Problem Status Onset Headache Acute Meningitis Acute
--- NOTE | 2017-02-26 15:16 | ASMTCASEMG ---
Living Arrangements What is your living Answers: With Spouse arrangement? Who do you live with? Type Of Residence What kind of residence do Answers: House you live in? Discharge Plan Comments Coordination Status Comments Notes: Pt is a 31 y/o female admitted for a headache and possible meningitis. Pt will most likely d/c independent w/ supportive when medically stable. No therapies ordered at this time. CM available for d/c needs. Plan: Independent Date Signed: 02/26/2017 03:15 PM Electronically Signed By:NAVNEET Castro
[2017-02-26] MEDS ORDERED: LIDOCAINE 1% 300 MG/30 ML SDV ONE (15:25)
[2017-02-26 23:08] LABS: HSV 1 PCR, CSF Negative (Negative); HSV 2 PCR, CSF Negative (Negative)
[2017-02-26 23:36] VITALS: O2SAT 98
[2017-02-27 07:31] VITALS: BP 98/56; PULSE 70; RESP 18; TEMP 98
[2017-02-27] MEDS: ACETAMINOPHEN 325 MG TAB PO PRN ×2 (07:32→07:33)
--- NOTE | 2017-02-27 15:57 | ASDISCHSUM ---
Discharge Information Plan Status:Home with No Needs Medically Cleared to Leave:02/26/2017 Discharge Date:02/27/2017 11:15 AM CM D/C Disposition: ADT D/C Disposition:Home, Routine, Self-Care Projected Discharge Date:02/27/2017 12:00 AM Transportation at D/C: Discharge Delay Reason: Follow-Up Date:02/27/2017 12:00 AM Discharge Slot: Final Diagnosis: Placement Information Patient Contact Information Contact Name:ANSLEY Relationship: Address:[address] Work Phone: City:[place] Alternate Phone: [facility]/Zip Code:[place] [address] Email: Financial Information Financial Class:HMO and PPO Plans Primary Plan Desc:[employer] Primary Plan Number:[id number] Secondary Plan Desc: Secondary Plan Number: Assessment Information [facility] Initial CM Assessment Living Arrangements What is your living Answers: With Spouse arrangement? Who do you live with? Type Of Residence What kind of residence do Answers: House you live in? Discharge Plan Comments Coordination Status Comments Notes: Pt is a 31 y/o female admitted for a headache and possible meningitis. Pt will most likely d/c independent w/ supportive when medically stable. No therapies ordered at this time. CM available for d/c needs. Plan: Independent Date Signed: 02/26/2017 03:15 PM Electronically Signed By:NAVNEET Castro Intervention Information Intervention Type:*Incorrect Registration Date of Service:02/25/2017 04:35 PM Patient Type:Inpatient Staff Member:LUANNE Ardon, Dorie Hours: Discipline: Severity: Comment:
[2017-02-27 23:26] LABS: SPECIMEN SOURCE CSF; VARICELLA ZOSTER NEGATIVE (Negative)
--- NOTE | 2017-02-28 00:32 | GDS ---
[f rep st] DISCHARGE SUMMARY DISCHARGE DIAGNOSIS: Positional headache that began after a snowboarding fall. CONSULTANTS: 1. Vaibhav Pena MD, Infectious Disease. 2. Interventional Radiology. HOSPITAL COURSE AND STAY BY PROBLEM: Positional headache: The patient presented to the hospital wit h a severe positional headache that began after sustaining a mechanical fall while snowboarding. She had a lumbar puncture done in the emergency department that showed a mildly elevated glucose, as wel l as protein and some mild pleocytosis. The initial working diagnosis was aseptic meningitis. After evaluating the patient, she did not appear to be toxic or acutely ill other than having a headache w hen she moved. This made the diagnosis of aseptic meningitis less likely. I discussed the case with Dr. Nevaeh Hammond from Neurosurgery who thought the possibility of a dural tear from her fall could b e causing this problem and recommended a blood patch, which was ultimately done by Dr. Caputo on 01/31. After undergoing the blood patch procedure, the patient began to feel better. On the day of discharge, her headache has practically resolved. She denies any neurologic deficits. PHYSICAL EXAMINATION: VITAL SIGNS: On day of discharge, blood pressure 98/56, pulse 70, respiratory rate 18, O2 saturation 98% on room air. NEUROLOGIC: No focal motor or sensory deficits, well appearing. DIAGNOSTIC DATABASE: Pertinent labs and studies done this hospital stay: MRA of the brain done 01/31, was negative for a dural sinus thrombosis. PROCEDURES DONE THIS HOSPITAL STAY: A blood patch done in the lumbar region on 02/26/2017, by Dr. Stephen garcia. DISCHARGE MEDICATIONS: Please refer to discharge medication reconciliation in [facility] for details. DISCHARGE INSTRUCTIONS: The patient was discharged home, where she was instructed to take it easy ov er the next couple days and seek medical attention if her condition worsens. /[id number]/MODL
[2017-02-28 18:26] LABS: ENTEROVIRUS BY PCR Negative (Negative); SPECIMEN SOURCE ENTEROVIRUS CSF
== END 2017-02-27 11:15 | disposition home or self-care (01) ==
LOC: INTOOBSV 13:34 → F3E 14:59
PROVIDERS: ADMIT Family Medicine; ATTEND Family Medicine
PROC: 009U3ZX Drainage of Spinal Canal, Percutaneous Approach, Diagnostic (ICD-10-PCS; principal; 2017-02-25)
PROC: 3E0S3GC Introduction of Other Therapeutic Substance into Epidural Space, Percutaneous Approach (ICD-10-PCS; 2017-02-25)
DX: G44.309 Post-traumatic headache, unspecified, not intractable (principal)
CPT/HCPCS: 62270; 62273; 70544; 96361; 96365; 96375; 99285; G0378; 87798-90; J0133; J0696; J1100; J1170; J1200; J1885; J2405; J2765; J3010; J3370

== ENCOUNTER → 2017-03-09 | Outpatient (CLI) | payer OTHER | LOC: FIMAGING 07:38 | PROVIDERS: ATTEND Family Medicine | DX: G93.0 Cerebral cysts (principal); G96.11 Dural tear ==